=== PATIENT | female | born 1970 | race Caucasian/White ===

== ENCOUNTER 2019-05-02 05:59 | Day surgery (SDC) | payer BC ==
[2019-04-28 14:50] LABS: Basophils # (auto) 0.1 uL; Basophils % (auto) 0.8 % (0.0-2.0); Eosinophils # (auto) 0.2 uL; Eosinophils % (auto) 1.8 % (0.0-7.0); Hematocrit 45.1 % (36.0-46.0); Hemoglobin 15.3 g/dL (12.2-16.2); Lymphocytes # (auto) 2.4 uL; Lymphocytes % (auto) 26.1 % (10.0-50.0); Mean Corpuscular Hemoglobin 31.8 pg (28.0-32.0); Mean Corpuscular Hgb Conc. 33.9 g/dL (32.0-36.0); Mean Corpuscular Volume 93.8 fL (80.0-100.0); Monocytes # (auto) 0.6 uL; Monocytes % (auto) 6.5 % (0.0-12.0); Neutrophils # (auto) 5.9 uL; Neutrophils % (auto) 64.8 % (37.0-80.0); Nucleated Red Blood Cells % 0.1 %; Platelet Count (auto) 228 10^3/uL (140-450); Red Cell Distribution Width 14.1 % (11.8-14.3); White Blood Cell 9.1 10^3/uL (4.4-10.8)
[2019-04-28 14:56] LABS: Urine Bacteria NONE SEEN /hpf (None Seen); Urine Blood Negative /uL (Negative); Urine Specific Gravity 1.023 (1.001-1.035); Urine WBC 2 /hpf (0 - 5)
[2019-04-28 15:06] LABS: INR 0.98 (0.9-1.15); Partial Thromboplastin Time 29.6 sec (23.64-32.05)
[2019-04-28 15:07] LABS: Albumin 4.2 g/dL (3.4-5.0); Calcium 9.5 mg/dL (8.5-10.1); Potassium 3.7 mmol/L (3.5-5.1)
[2019-04-28 15:10] LABS: BUN/Creatinine Ratio 18.4; Bilirubin, Total 0.2 mg/dL (0.2-1.0); Total Protein 7.7 g/dL (6.4-8.2)
[~2019-05-02] VITALS: Ht 157.5 cm; Wt 78.0 kg
[~2019-05-02 05:59] MED LIST: MULT1TAB34 PO; MULT1TAB70 PO; VENL75TA2 PO; [UNRECOGNIZED DRUG - CODE] PO
[2019-05-02] MEDS ORDERED: ceFAZolin 1GM/50ML 50 ML IV ONE (07:36)
[2019-05-02] MEDS ORDERED: LIDOCAINE 1% HCL (LOCAL ANESTH.) INJ 20ML MDV ONE (09:33)
[2019-05-02] MEDS ORDERED: MORPHINE SULF(PF) 0.5MG/ML 10ML VIAL ONE (09:55)
[2019-05-02] MEDS ORDERED: SUCCINYLCHOLINE CHLORIDE 20 MG/ML 10ML VIAL IV ONE (09:58)
[2019-05-02] MEDS ORDERED: ROCURONIUM 10MG/ML 10ML VIAL IV ONE (09:58)
[2019-05-02] MEDS ORDERED: MIDAZOLAM HCL 1MG/1ML-2 ML VIAL ONE (10:06)
[2019-05-02] MEDS ORDERED: METOCLOPRAMIDE HCL 5MG/ml INJ 2ml VIAL ONE (10:07)
[2019-05-02] MEDS ORDERED: PROPOFOL 10 MG/ML 20 ML IV ONE (10:08)
[2019-05-02] MEDS ORDERED: fentaNYL CITRATE 100 MCG/2 ML VL ONE (10:14)
[2019-05-02] MEDS ORDERED: ePHEDrine SULFATE 50 MG/ML AMP ONE (10:20)
[2019-05-02] MEDS ORDERED: SODIUM CHLORIDE LOCK 10 ML ONE ×2 (10:20→10:33)
[2019-05-02] MEDS ORDERED: HYDROmorphone HCL 2 MG/ML VL IV PRN ×2 (10:30)
[2019-05-02] MEDS ORDERED: NALOXONE HCL 0.4 MG/ML VIAL IV PRN (10:30)
[2019-05-02] MEDS ORDERED: ONDANSETRON HCL 4 MG/2 ML VIAL IV PRN (10:30)
[2019-05-02] MEDS ORDERED: PHENYLEPHRINE HCL 10 MG/ML VL ONE (10:33)
[2019-05-02] MEDS ORDERED: NEOSTIGMINE 1 MG/ML INJ (10mg/10ML VIAL) ONE (11:30)
[2019-05-02] MEDS ORDERED: GLYCOPYRROLATE 0.2 MG/ML 1ML VIAL ONE (11:30)
[2019-05-02 12:42] VITALS: BP 129/74
== END 2019-05-02 12:57 | disposition home or self-care (01) ==
LOC: SUR 05:59
PROVIDERS: ATTEND Orthopaedic Surgery
DX: S83.281A Other tear of lateral meniscus, current injury, right knee, initial encounter (principal); M65.861 Other synovitis and tenosynovitis, right lower leg; M94.261 Chondromalacia, right knee; M71.21 Synovial cyst of popliteal space [Baker], right knee; G47.33 Obstructive sleep apnea (adult) (pediatric); E66.9 Obesity, unspecified; G43.909 Migraine, unspecified, not intractable, without status migrainosus; F17.210 Nicotine dependence, cigarettes, uncomplicated; Z98.890 Other specified postprocedural states; Z68.31 Body mass index [BMI] 31.0-31.9, adult; Z98.51 Tubal ligation status; X58.XXXA Exposure to other specified factors, initial encounter; Y93.89 Activity, other specified; Y92.89 Other specified places as the place of occurrence of the external cause; Y99.8 Other external cause status
CPT/HCPCS: 29876; 29879; 29881; 36415; 80053; 81001; 84702; 85025; 85610; 85730; 93005; J0330; J0690; J2001; J2250; J2270; J2370; J2704; J2765; J3010